=== PATIENT | male | born 1995 | race Caucasian/White ===

== ENCOUNTER → 2019-05-20 | Outpatient (CLI) | payer BC ==
--- NOTE | 2019-05-20 17:41 | Diagnostic Imaging Report ---
INDICATION: Right knee pain for 2 months, no known injury. FINDINGS: Three views of the right knee demonstrate normal ossification. No fracture, dislocation or joint effusion is present. IMPRESSION: Normal right knee. Dictated by: Dictated on workstation # [id number]
== END ==
LOC: RAD FS 17:01
PROVIDERS: ATTEND Nurse Practitioner Family
DX: M25.561 Pain in right knee (principal)
CPT/HCPCS: 73562